=== PATIENT | female | born 1990 | race Caucasian/White ===

== ENCOUNTER 2022-08-14 13:27 | Emergency (ER) | payer OTHER ==
[~2022-08-14] VITALS: Ht 154.9 cm; Wt 56.7 kg
[2022-08-14] MEDS ORDERED: IBUP-1955 PO (16:57)
[2022-08-14] MEDS ORDERED: CYCL5TAB PO (16:57)
--- NOTE | 2022-08-14 17:00 | NUR ---
Reclining in [facility] NO obvious distress.
--- NOTE | 2022-08-14 18:15 | NUR ---
Patient discharged to home in stable condition. Written and verbal after care instructions given. Patient verbalizes understanding of instruction.
[2022-08-14 18:17] VITALS: BP 127/78
== END 2022-08-14 18:19 | disposition home or self-care (01) ==
LOC: ER 13:30
DX: S16.1XXA Strain of muscle, fascia and tendon at neck level, initial encounter (principal); S09.90XA Unspecified injury of head, initial encounter; Z79.899 Other long term (current) drug therapy; W18.30XA Fall on same level, unspecified, initial encounter; Y93.89 Activity, other specified; Y92.89 Other specified places as the place of occurrence of the external cause; Y99.8 Other external cause status
CPT/HCPCS: 70450-TC; 72125-TC; 84703-TC